=== PATIENT | male | born 1980 | race Caucasian/White ===

== ENCOUNTER 2019-12-23 16:39 | Emergency (ER) | payer OTHER, SELFPAY ==
[2019-12-23 16:53] VITALS: BMI 27.6
[2019-12-23 17:15] LABS: INR 0.9 (0.9-1.3); Prothrombin Time 10.9 SECONDS (10.1-12.7)
[2019-12-23] MEDS: KETOROLAC 60 MG/2 ML VIAL 30 MG IV (17:15)
[2019-12-23 17:16] VITALS: BP 143/90; PULSE 80; RESP 22; O2SAT 98
[2019-12-23 17:16] LABS: Add Manual Diff / Slide Review NO; Basophils Absolute Auto 100 /uL (0-100); Eosinophils Absolute Auto 300 /uL (0-450); Eosinophils Percent Auto 3.4 % (2-4); Hematocrit 44.2 % (41-53); Hemoglobin 15.8 g/dL (13.5-17.5); Lymphocytes Absolute Auto 2800 /uL (1100-4500); Mean Corpuscular HGB Conc 35.6 % (30-36); Mean Corpuscular Hemoglobin 30.9 PG (26-34); Mean Corpuscular Volume 86.6 fL (80-100); Monocytes Absolute Auto 400 /uL (0-900); Monocytes Percent Auto 4.3 % (3-14); Neutrophils Absolute Auto 5200 /uL (1500-7000); Neutrophils Percent Auto 59.3 % (50-75); Platelet Count 212 X10^3/uL (150-400); Red Blood Cell Count 5.11 X10^6/uL (4.5-5.9); Red Cell Distribution Width 13.5 % (11.6-14.8); White Blood Cell Count 8.8 X10^3/uL (4.5-11.0)
[2019-12-23] MEDS: ONDANSETRON 4 MG/2 ML INJ IV (17:16)
[2019-12-23] MEDS: SODIUM CHLORIDE 0.9% 1,000 ML 1000 ML IV (17:16)
[2019-12-23 17:17] LABS: PTT Partial Thromboplastin Tim 33 SECONDS (26.4-36.2)
[2019-12-23 17:20] LABS: Alanine Aminotransferase 42 IU/L (<50); Albumin 4.9 g/dL (3.5-5.0); Albumin Globulin Ratio 1.5 (1.0-2.8); Alkaline Phosphatase 79 U/L (38-126); Aspartate Aminotransferase 35 IU/L (17-59); BUN Creatinine Ratio 21.5 (6-22); Bilirubin Total 0.6 mg/dL (0.2-1.3); Blood Urea Nitrogen 23 mg/dL (9-20); Calcium 9.5 mg/dL (8.4-10.2); Carbon Dioxide 27 mmol/L (22-32); Chloride 103 mmol/L (98-107); Estimated Glomerular Filt Rate > 60.0 mL/min (>60); Globulin 3.2 g/dL (1.7-4.1); Glucose 91 mg/dL (70-100); HEMOLYSIS 18 (0-50); Lipase 116 U/L (23-300); Potassium 4.1 mmol/L (3.4-5.1); Sodium 140 mmol/L (137-145); Total Protein 8.1 g/dL (6.3-8.2)
--- NOTE | 2019-12-23 17:25 | DI.CT.S_ITS ---
PROCEDURE: CT KIDNEY URETER BLADDER (KUB) INDICATIONS: FLANK PAIN TECHNIQUE: Noncontrast 5 mm thick sections acquired from the diaphragms to the symphysis. 5 mm thick coronal and sagittal reformats were then performed. For radiation dose reduction, the following was used: automated exposure control, adjustment of mA and/or kV according to patient size. COMPARISON: None. FINDINGS: Image quality: Excellent. Lung bases: Lung bases are clear. Heart size is normal. Urinary system: No hydronephrosis. 6 mm calculus seen in the left kidney on image 21/2. No other urolithiasis identified. No bladder calculi seen. No perinephric stranding Other solid organs: Liver is normal in size. Gallbladder is decompressed. Pancreas is normal in contours. Spleen is normal in size. No adrenal nodules. Peritoneum and bowel: Unenhanced bowel loops demonstrate normal wall thickness and caliber. No free fluid or air. Normal appendix Nodes and vessels: No retroperitoneal or mesenteric adenopathy by size criteria. Aorta and inferior vena cava are normal in caliber. Abdominal wall: No ventral hernias. Pelvis: Nonspecific pelvic free fluid. No inguinal hernias or adenopathy. Bones: No suspicious bony lesions. No vertebral body compression fractures. IMPRESSION: Moderate pelvic free fluid. 6 mm left renal calculus. No evidence of urinary obstruction Normal appendix Elsewhere, no acute abnormality Dictated by: Ector Burnette M.D. on 12/23/2019 at 17:57 Approved by: Ector Burnette M.D. on 12/23/2019 at 18:02
--- NOTE | 2019-12-23 19:34 | ED_ITS ---
HPI - Male Genitourinary <KARYN Brooks - Last Filed: 12/23/19 20:32> General Chief complaint: Urogenital-Male Stated complaint: states kidney stones Time Seen by Provider: 12/23/19 17:26 Source: patient and family Mode of arrival: Family Vehicle Limitations: no limitations History of Present Illness HPI Narrative: The patient is a 39-year-old male current smoker presents with his for chief complaint of left-sided flank and left-sided abdominal pain. He states he has a known kidney stone that he is having pain from it. He had a CT back in October that showed a 6 x 9 mm stone. He states that they think it is a stone, they are not sure he is post have a CT with contrast shortly to have further evaluation. He states that a eating a.m. he started having left-sided flank and inguinal pain. He denies any fevers, complains of nausea no vomiting. He states that this feels consistent with previous stone. He denies any stool changes. Denies any chest pain or shortness of breath. Denies any testicular swelling or redness or continued pain at this point time. Related Data Home Medications Medication Instructions Recorded Confirmed Wellbutrin XL 12/23/19 loratadine 12/23/19 naproxen [Naprosyn] 500 mg PO BID 12/23/19 12/23/19 Previous Rx's Medication Instructions Recorded ketorolac 10 mg PO TID PRN #14 tab 12/23/19 ondansetron 4 mg PO Q6H PRN #20 tab 12/23/19 tamsulosin [Flomax] 0.4 mg PO DAILY #7 cap 12/23/19 tramadol 50 mg PO Q6H PRN #7 tab 12/23/19 Allergies Allergy/AdvReac Type Severity Reaction Status Date / Time No Known Drug Allergies Allergy Verified 12/23/19 16:56 Review of Systems <KARYN Brooks - Last Filed: 12/23/19 20:32> Review of Systems Narrative: GENERAL: Denies chills, fatigue, malaise, fever, sweats. HEENT: Denies sinus pain, ear pain, sore throat, difficulty swallowing, dizziness. RESPIRATORY: Denies dyspnea, cough, wheezing, hemoptysis, sputum. CARDIOVASCULAR: Denies chest pain, palpitations, orthopnea, edema, GASTROINTESTINAL: See HPI : Denies dysuria, frequency, incontinence, hematuria, urinary retention. MUSCULOSKELETAL: denies weakness, joint pain, or bony pain SKIN: Denies rash, skin lesions, or other NEUROLOGIC: Denies weakness, headache, numbness, change in speech, confusion, seizures, incoordination. PSYCHIATRIC: No concerning psychosocial issues. 12 point review of systems is negative except for those stated above Patient History <KARYN Brooks - Last Filed: 12/23/19 20:32> Social History Smoking Status: Current every day smoker Smoking Status: Current every day smoker tobacco type: cigarettes and vaping alcohol intake frequency: holidays/special occasions only Substance Use Type: marijuana Exam <KARYN Brooks - Last Filed: 12/23/19 20:32> Narrative Exam Narrative: GENERAL: This is a well-nourished, well-developed patient, in mild distress. HEAD: Atraumatic. Normocephalic. No temporal or scalp tenderness. EYES: Pupils equal round and reactive. Extraocular motions intact. No scleral icterus. No injection or drainage. ENT: Nose without bleeding, purulent drainage or septal hematoma. Throat without erythema, tonsillar hypertrophy or exudate. Uvula midline. Airway patent. NECK: Trachea midline. No JVD or lymphadenopathy. Supple, nontender, no meningeal signs. CARDIOVASCULAR: Regular rate and rhythm RESPIRATORY: Clear to auscultation. Breath sounds equal bilaterally. No wheezes, rales, or rhonchi. GASTROINTESTINAL: Abdomen soft, tenderness to palpation left lower quadrant, nondistended. No hepato-splenomegaly, or palpable masses. No guarding. Active bowel sounds all 4 quadrants EXTREMITIES: No clubbing, cyanosis, or edema. No joint tenderness, effusion, or edema noted. BACK: Nontender without deformity or crepitance. No flank tenderness. No CVA tenderness bilaterally NEURO: AOx3. SKIN: No rash or erythema. Initial Vital Signs Initial Vital Signs: Vital Signs Pulse Rate 80 12/23/19 17:16 Respiratory Rate 22 12/23/19 17:16 Blood Pressure 143/90 H 12/23/19 17:16 Pulse Oximetry 98 12/23/19 17:16 <Anika Hua MD - Last Filed: 12/23/19 22:04> Initial Vital Signs Initial Vital Signs: Vital Signs Pulse Rate 80 12/23/19 17:16 Respiratory Rate 22 12/23/19 17:16 Blood Pressure 143/90 H 12/23/19 17:16 Pulse Oximetry 98 12/23/19 17:16 Course <Kyara JosephJIMP-BC - Last Filed: 12/23/19 20:32> Orders Ordered: ED Orders 12/23/19 17:00 Complete Blood Count AUTO DIFF Stat Comprehensive Metabolic Panel Stat Lipase Stat Partial Thromboplastin Time Stat Prothrombin Time INR Stat 12/23/19 17:25 CT kidney ureter bladder (KUB) Stat Discontinued Medications Sodium Chloride (Normal Saline 0.9%) 1,000 mls @ 1,000 mls/hr IV BOLUS ONE Stop: 12/23/19 18:04 Last Infusion: 12/23/19 18:45 Dose: 0 mls/hr Documented by: Admin: 12/23/19 17:16 Dose: 1,000 mls/hr Documented by: CHIRAG Ketorolac Tromethamine (Toradol) 30 mg IV NOW ONE Stop: 12/23/19 17:06 Last Admin: 12/23/19 17:17 Dose: Not Given Documented by: CHIRAG Ketorolac Tromethamine (Toradol) 30 mg IV NOW ONE Stop: 12/23/19 17:11 Last Admin: 12/23/19 17:15 Dose: 30 mg Documented by: CHIRAG Morphine Sulfate (Morphine) 4 mg IV NOW ONE Stop: 12/23/19 17:27 Last Admin: 12/23/19 19:27 Dose: Not Given Documented by: MOMO Ondansetron HCl (Zofran) 4 mg IV NOW ONE Stop: 12/23/19 17:06 Last Admin: 12/23/19 17:16 Dose: 4 mg Documented by: CHIRAG Ondansetron HCl (Zofran Odt Prepack) 1 bottle MISC SEEINSTR ONE Stop: 12/23/19 20:02 Last Admin: 12/23/19 20:07 Dose: 1 bottle Documented by: MOMO Tramadol HCl (Ultram 50mg Prepack) 1 bottle MISC SEEINSTR ONE Stop: 12/23/19 20:02 Last Admin: 12/23/19 20:07 Dose: 1 bottle Documented by: MOMO Vital Signs Vital signs: Vital Signs - 8 hr 12/23/19 17:16 12/23/19 19:58 Pulse Rate 80 84 Respiratory Rate 22 18 Blood Pressure [Left Arm] 143/90 H 150/90 H Pulse Oximetry 98 97 <Anika Hua MD - Last Filed: 12/23/19 22:04> Orders Ordered: ED Orders 12/23/19 17:00 Complete Blood Count AUTO DIFF Stat Comprehensive Metabolic Panel Stat Lipase Stat Partial Thromboplastin Time Stat Prothrombin Time INR Stat 12/23/19 17:25 CT kidney ureter bladder (KUB) Stat Discontinued Medications Sodium Chloride (Normal Saline 0.9%) 1,000 mls @ 1,000 mls/hr IV BOLUS ONE Stop: 12/23/19 18:04 Last Infusion: 12/23/19 18:45 Dose: 0 mls/hr Documented by: Admin: 12/23/19 17:16 Dose: 1,000 mls/hr Documented by: CHIRAG Ketorolac Tromethamine (Toradol) 30 mg IV NOW ONE Stop: 12/23/19 17:06 Last Admin: 12/23/19 17:17 Dose: Not Given Documented by: CHIRAG Ketorolac Tromethamine (Toradol) 30 mg IV NOW ONE Stop: 12/23/19 17:11 Last Admin: 12/23/19 17:15 Dose: 30 mg Documented by: CHIRAG Morphine Sulfate (Morphine) 4 mg IV NOW ONE Stop: 12/23/19 17:27 Last Admin: 12/23/19 19:27 Dose: Not Given Documented by: MOMO Ondansetron HCl (Zofran) 4 mg IV NOW ONE Stop: 12/23/19 17:06 Last Admin: 12/23/19 17:16 Dose: 4 mg Documented by: CHIRAG Ondansetron HCl (Zofran Odt Prepack) 1 bottle MISC SEEINSTR ONE Stop: 12/23/19 20:02 Last Admin: 12/23/19 20:07 Dose: 1 bottle Documented by: MOMO Tramadol HCl (Ultram 50mg Prepack) 1 bottle MISC SEEINSTR ONE Stop: 12/23/19 20:02 Last Admin: 12/23/19 20:07 Dose: 1 bottle Documented by: MOMO Vital Signs Vital signs: Vital Signs - 8 hr 12/23/19 17:16 12/23/19 19:58 Pulse Rate 80 84 Respiratory Rate 22 18 Blood Pressure [Left Arm] 143/90 H 150/90 H Pulse Oximetry 98 97 MDM - Male Genitourinary <Kyara Olearymer, NEUROPHYSIOLOGICAL TECHNICIAN- - Last Filed: 12/23/19 20:32> Lab Data Result diagrams: 12/23/19 17:00 12/23/19 17:00 Labs: Lab Results 12/23/19 12/23/19 12/23/19 Range/Units 17:00 17:00 17:00 WBC 8.8 (4.5-11.0) X10^3/uL RBC 5.11 (4.5-5.9) X10^6/uL Hgb 15.8 (13.5-17.5) g/dL Hct 44.2 (41-53) % MCV 86.6 (80-100) fL MCH 30.9 (26-34) PG MCHC 35.6 (30-36) % RDW 13.5 (11.6-14.8) % Plt Count 212 (150-400) X10^3/uL Neut % (Auto) 59.3 (50-75) % Lymph % (Auto) 32.0 (25-40) % Weld % (Auto) 4.3 (3-14) % Eos % (Auto) 3.4 (2-4) % Baso % (Auto) 1.0 (0-2) % Neut # (Auto) 5200 (4937-3669) /uL Lymph # (Auto) 2800 (4463-9394) /uL Weld # (Auto) 400 (0-900) /uL Eos # (Auto) 300 (0-450) /uL Baso # (Auto) 100 (0-100) /uL PT 10.9 (10.1-12.7) SECONDS INR 0.9 (0.9-1.3) APTT 33 (26.4-36.2) SECONDS Sodium 140 (137-145) mmol/L Potassium 4.1 (3.4-5.1) mmol/L Chloride 103 (98-107) mmol/L Carbon Dioxide 27 (22-32) mmol/L BUN 23 H (9-20) mg/dL Creatinine 1.07 (0.66-1.25) mg/dL Estimated GFR > 60.0 (>60) mL/min BUN/Creatinine Ratio 21.5 (6-22) Glucose 91 (70-100) mg/dL Calcium 9.5 (8.4-10.2) mg/dL Total Bilirubin 0.6 (0.2-1.3) mg/dL AST 35 (17-59) IU/L ALT 42 (<50) IU/L Alkaline Phosphatase 79 (38-126) U/L Total Protein 8.1 (6.3-8.2) g/dL Albumin 4.9 (3.5-5.0) g/dL Globulin 3.2 (1.7-4.1) g/dL Albumin/Globulin Ratio 1.5 (1.0-2.8) Lipase 116 (23-300) U/L Urine Dip Bedside Urine Glucose Negative Bedside Urine Bilirubin - Negative Bedside Urine Ketone - Negative Urine Specific [place] 1.030 Bedside Urine Occult Blood - Negative Bedside Urine pH 6.0 Bedside Urine Protein - Negative Bedside Urine Urobilinogen - Negative Bedside Urine Nitrite - Negative Bedside Urine Leukocytes - Negative Esterase Imaging Data CT scan - abdomen/pelvis: Radiologist's Impression: [address] [place] [address] CT Scan Report Signed Patient: Rafa Cates WMR#: [id number] : 1980Acct:[id number] Age/Sex: 39 / MDate of Service: 12/23/19 Loc: ED Accession Number: [id number] Procedure: CT kidney ureter bladder (KUB) Ordering Provider: Terry Ray MD PROCEDURE: CT KIDNEY URETER BLADDER (KUB) INDICATIONS: FLANK PAIN TECHNIQUE: Noncontrast 5 mm thick sections acquired from the diaphragms to the symphysis. 5 mm thick coronal and sagittal reformats were then performed. For radiation dose reduction, the following was used: automated exposure control, adjustment of mA and/or kV according to patient size. COMPARISON: None. FINDINGS: Image quality: Excellent. Lung bases: Lung bases are clear. Heart size is normal. Urinary system: No hydronephrosis. 6 mm calculus seen in the left kidney on image 21/2. No other urolithiasis identified. No bladder calculi seen. No perinephric stranding Other solid organs: Liver is normal in size. Gallbladder is decompressed. Pancreas is normal in contours. Spleen is normal in size. No adrenal nodules. Peritoneum and bowel: Unenhanced bowel loops demonstrate normal wall thickness and caliber. No free fluid or air. Normal appendix Nodes and vessels: No retroperitoneal or mesenteric adenopathy by size criteria. Aorta and inferior vena cava are normal in caliber. Abdominal wall: No ventral hernias. Pelvis: Nonspecific pelvic free fluid. No inguinal hernias or adenopathy. Bones: No suspicious bony lesions. No vertebral body compression fractures. IMPRESSION: Moderate pelvic free fluid. 6 mm left renal calculus. No evidence of urinary obstruction Normal appendix Elsewhere, no acute abnormality Dictated by: Ector Burnette M.D. on 12/23/2019 at 17:57 Approved by: Ector Burnette M.D. on 12/23/2019 at 18:02 [facility] Narrative Medical decision making narrative: The patient is a 39-year-old male known kidney stone who presents with a chief complaint of left lower belly pain and left flank pain. He states that it feels similar to past kidney stones. He was given IV fluid, as well as medications and feels much better with the above- stated therapies. CT non-con shows a 6 mm left renal stone, no ureteral stones at this point time. However this possible that he already passed one. I discussed the possibility of diverticulitis, however the patient has no fevers or bowel changes. He has no leukocytosis. He also has normal renal function, and complains of dysuria. He has no signs of infection in his urine. He denies a possibility of sexually transmitted infections and does not want to be tested at this point time. We discussed the possibility of doing an abdominal CT with contrast, but the patient does not want to this point time as he states he [facility] Additionally he states he does not have any fevers and does not feel is warranted at this time. I discussed that I am okay with that as he has no leukocytosis, appears well overall. Additionally his symptoms and presentation do correlate with a ureteral stone. I did discussed at length strict return precautions including abdominal pain with fever etcetera. Patient again declined any further workup for imaging at this point time. Encouraged PCP follow-up in the next few days. Patient has no questions or concerns upon discharge and states understanding of return precautions as well as follow-up care. <Anika Hua MD - Last Filed: 12/23/19 22:04> Lab Data Labs: Lab Results 12/23/19 12/23/19 12/23/19 Range/Units 17:00 17:00 17:00 WBC 8.8 (4.5-11.0) X10^3/uL RBC 5.11 (4.5-5.9) X10^6/uL Hgb 15.8 (13.5-17.5) g/dL Hct 44.2 (41-53) % MCV 86.6 (80-100) fL MCH 30.9 (26-34) PG MCHC 35.6 (30-36) % RDW 13.5 (11.6-14.8) % Plt Count 212 (150-400) X10^3/uL Neut % (Auto) 59.3 (50-75) % Lymph % (Auto) 32.0 (25-40) % Weld % (Auto) 4.3 (3-14) % Eos % (Auto) 3.4 (2-4) % Baso % (Auto) 1.0 (0-2) % Neut # (Auto) 5200 (4631-7780) /uL Lymph # (Auto) 2800 (8647-9190) /uL Weld # (Auto) 400 (0-900) /uL Eos # (Auto) 300 (0-450) /uL Baso # (Auto) 100 (0-100) /uL PT 10.9 (10.1-12.7) SECONDS INR 0.9 (0.9-1.3) APTT 33 (26.4-36.2) SECONDS Sodium 140 (137-145) mmol/L Potassium 4.1 (3.4-5.1) mmol/L Chloride 103 (98-107) mmol/L Carbon Dioxide 27 (22-32) mmol/L BUN 23 H (9-20) mg/dL Creatinine 1.07 (0.66-1.25) mg/dL Estimated GFR > 60.0 (>60) mL/min BUN/Creatinine Ratio 21.5 (6-22) Glucose 91 (70-100) mg/dL Calcium 9.5 (8.4-10.2) mg/dL Total Bilirubin 0.6 (0.2-1.3) mg/dL AST 35 (17-59) IU/L ALT 42 (<50) IU/L Alkaline Phosphatase 79 (38-126) U/L Total Protein 8.1 (6.3-8.2) g/dL Albumin 4.9 (3.5-5.0) g/dL Globulin 3.2 (1.7-4.1) g/dL Albumin/Globulin Ratio 1.5 (1.0-2.8) Lipase 116 (23-300) U/L Urine Dip Bedside Urine Glucose Negative Bedside Urine Bilirubin - Negative Bedside Urine Ketone - Negative Urine Specific [place] 1.030 Bedside Urine Occult Blood - Negative Bedside Urine pH 6.0 Bedside Urine Protein - Negative Bedside Urine Urobilinogen - Negative Bedside Urine Nitrite - Negative Bedside Urine Leukocytes - Negative Esterase Discharge Plan Departure Patient Disposition: Home Clinical Impression: Renal calculus, left Abdominal pain Qualifiers: Abdominal location: left lower quadrant Qualified Code(s): R10.32 - Left lower quadrant pain Discharge Date/Time: 12/23/19 20:14 Instructions: DI for Kidney Stones, DI for Abdominal Pain-Adult Activity Restrictions/Additional Instructions: Thank you for trusting us with your care today Your CT shows a 6 mm stone in your left kidney. I doubt that this is causing your pain, however you could have passed pieces of stone or different stone. As discussed, this is impossible to determine if you have already passed a stone. You have elected to hold off on a abdominal CT with contrast at this point time. I have sent for prescriptions to [facility] in [place]. This includes a nausea medication, Flomax, Toradol and tramadol I have given you a prescription of Toradol. This is an NSAID. Do not combine it with other NSAIDs such as Aleve or ibuprofen. I suggest taking it with some food, as it can irritate your stomach. You have been prescribed narcotic medications. While on these medications you cannot drive or operate heavy machinery. Additionally you cannot sign legal documents or perform any duties such as this. Many people get constipated on narcotic medications so it would be advisable to discuss stool softeners with the pharmacist when you rock picker your prescription. Please understand that we cannot provide further refills of narcotics or controlled substances through the ED and your pain management will need to be through your Primary Care Provider Please come back to the emergency department for any acute concerns such as abdominal pain with fever, inability keep down fluids etcetera Prescriptions: New tramadol 50 mg tablet 50 mg PO Q6H PRN (Reason: pain) Qty: 7 RF: 0 ketorolac 10 mg tablet 10 mg PO TID PRN (Reason: pain) Qty: 14 RF: 0 ondansetron 4 mg tablet,disintegrating 4 mg PO Q6H PRN (Reason: nausea and vomiting) Qty: 20 RF: 0 tamsulosin [Flomax] 0.4 mg capsule 0.4 mg PO DAILY Qty: 7 RF: 0 No Action naproxen [Naprosyn] 500 mg Tablet 500 mg PO BID RF: 0 Wellbutrin XL RF: 0 loratadine RF: 0 Referrals: Chauncey Morris DO [Non-Staff] - <Anika Hua MD - Last Filed: 12/23/19 22:04> Cosign ED Attending Gisellaature Attestation: I was immediately available in the department for consultation throughout this patient's visit. I agree with documentation as above. Anika Hua MD
[2019-12-23 19:58] VITALS: BP 150/90; PULSE 84; RESP 18; O2SAT 97
[2019-12-23] MEDS: TRAMADOL 50 MG PREPACK 1 BOTTLE MISC (20:07)
[2019-12-23] MEDS: ONDANSETRON 4 MG ODT PREPACK 1 BOTTLE MISC (20:07)
== END 2019-12-23 20:14 | disposition home or self-care (01) ==
PROVIDERS: Emergency Medicine; Emergency Provider Nurse Practitioner Family
DX: N20.0 Calculus of kidney (principal); R10.32 Left lower quadrant pain
CPT/HCPCS: 36415; 74176; 80053; 81003; 83690; 85025; 85610; 85730; 96361; 96374; 96375; 99284; J1885; J2405